=== PATIENT | female | born 1955 | race Two or more races ===

== ENCOUNTER → 2017-05-03 | Outpatient (CLI) | payer OTHER | LOC: FIMAGING 07:34 | PROVIDERS: ATTEND Internal Medicine | DX: K76.0 Fatty (change of) liver, not elsewhere classified (principal) | CPT/HCPCS: G0202 ==

== ENCOUNTER → 2018-04-30 | Outpatient (CLI) | payer OTHER | LOC: FIMAGING 16:09 | PROVIDERS: ATTEND Internal Medicine | DX: Z12.31 Encounter for screening mammogram for malignant neoplasm of breast (principal) ==